=== PATIENT | female | born 1995 | race Caucasian/White ===

== ENCOUNTER 2023-02-12 18:16 | Emergency (ER) | payer SELFPAY ==
[~2023-02-12] VITALS: Ht 154.9 cm; Wt 68.0 kg
[2023-02-12 18:47] VITALS: O2SAT 100
[2023-02-12] MEDS ORDERED: BACITRACIN ZINC OINT UDPKT TOP ONE (19:00)
[2023-02-12] MEDS: BACITRACIN ZINC OINT UDPKT TOP NR ×2 (21:45→22:26)
[2023-02-13 00:20] VITALS: BP 137/71; PULSE 93; RESP 18; TEMP 98.6
[2023-02-13] MEDS ORDERED: BO1 TP (00:22)
== END 2023-02-13 00:55 | disposition home or self-care (01) ==
LOC: ER 18:16
DX: S09.93XA Unspecified injury of face, initial encounter (principal); G89.11 Acute pain due to trauma; Y08.89XA Assault by other specified means, initial encounter; Y93.89 Activity, other specified; Y92.89 Other specified places as the place of occurrence of the external cause; Y99.8 Other external cause status
CPT/HCPCS: 99282